=== PATIENT | male | born 1960 | race Two or more races ===

== ENCOUNTER 2016-05-30 11:45 | Emergency (ER) | payer SELFPAY ==
[~2016-05-30] VITALS: Ht 165.1 cm; Wt 91.0 kg
[2016-05-30] MEDS ORDERED: CARV12.545 PO (11:55)
[2016-05-30] MEDS ORDERED: ATOR10TA69 PO (11:55)
[2016-05-30] MEDS ORDERED: SITA50TA3 PO (11:55)
[2016-05-30] MEDS ORDERED: METF500T4 PO (11:55)
[2016-05-30] MEDS ORDERED: IBUPROFEN 600MG TABLET PO ONE (15:00)
[2016-05-30 15:17] VITALS: BP 145/81
== END 2016-05-30 15:20 | disposition home or self-care (01) ==
LOC: ER 11:46
DX: M25.562 Pain in left knee (principal); M25.561 Pain in right knee; I10 Essential (primary) hypertension; E11.9 Type 2 diabetes mellitus without complications; Z98.890 Other specified postprocedural states
CPT/HCPCS: 73562; 99284

== ENCOUNTER 2017-05-15 02:47 | Emergency (ER) | payer SELFPAY ==
[~2017-05-15] VITALS: Ht 162.6 cm; Wt 75.0 kg
[~2017-05-15 02:47] MED LIST: ATOR10TA69 PO; CARV12.545 PO; METF500T4 PO; SITA50TA3 PO
[2017-05-15 05:48] LABS: CLARITY URINE CLEAR (CLEAR); COLOR URINE YELLOW (YELLOW); KETONES URINE NEGATIVE (NEGATIVE); LEUKOCYTE ESTERASE URINE NEGATIVE (NEGATIVE); NITRITE URINE NEGATIVE (NEGATIVE); OCCULT BLOOD URINE NEGATIVE (NEGATIVE); PROTEIN URINE NEGATIVE (NEGATIVE); SPECIFIC GRAVITY URINE 1.022 (1.005-1.030); UROBILINOGEN URINE 0.2 E.U./dL (0.2-1.0)
[2017-05-15] MEDS ORDERED: KETOROLAC 30MG/ML VIAL IM ONE (07:45)
[2017-05-15 08:35] VITALS: BP 165/88
== END 2017-05-15 08:41 | disposition home or self-care (01) ==
LOC: ER 02:47
DX: N50.819 Testicular pain, unspecified (principal); N50.89 Other specified disorders of the male genital organs; I10 Essential (primary) hypertension; E11.9 Type 2 diabetes mellitus without complications; M19.90 Unspecified osteoarthritis, unspecified site
CPT/HCPCS: 76870; 81003; 93976; 96372; 99285; J1885

== ENCOUNTER 2024-02-07 11:02 | Emergency (ER) | payer MEDICAID ==
[~2024-02-07] VITALS: Ht 167.6 cm; Wt 80.0 kg
[~2024-02-07 11:02] MED LIST changes: +METF-414 PO; -METF500T4 PO
[2024-02-07 11:07] VITALS: O2SAT 100
[2024-02-07 11:11] VITALS: BP 138/75; PULSE 71; RESP 18; TEMP 97.9; O2SAT 97
[2024-02-07] MEDS ORDERED: SULF1TAB48 MT (12:58)
[2024-02-07] MEDS: TETANUS, DIPHTHERIA, PERTUSSIS VAC/PF 0.5ML (>10YR OLD) IM ONE (13:19)
== END 2024-02-07 13:22 | disposition home or self-care (01) ==
LOC: ER 11:02
DX: M79.89 Other specified soft tissue disorders (principal); R22.9 Localized swelling, mass and lump, unspecified; I10 Essential (primary) hypertension; E11.9 Type 2 diabetes mellitus without complications; Z79.899 Other long term (current) drug therapy
CPT/HCPCS: 73140; 90715; 90471; 99283; Z7610